=== PATIENT | female | born 1995 | race Caucasian/White ===

== ENCOUNTER 2019-11-22 11:42 | Emergency (ER) | payer MEDICAID, OTHER ==
[~2019-11-22] VITALS: Ht 160 cm; Wt 100.0 kg
[~2019-11-22 11:42] MED LIST: AMOX500T PO; IBUP-1223 PO; OXYC-302 PO; PREN1TAB56 PO
--- NOTE | 2019-11-22 12:35 | NUR ---
pt to ed from home c/o cough and sore throat x2 months. sts feels sob at night. c/o chills and sweats at night. sts productive cough only in the morning and will spit up clear mucus with bright red blood in it. denies travel/contact w/ others who traveled/hx TB. KATHIE Cage made aware. discussed w/ hemodialysis charge nurse. n95 mask precautions until provider assessment. lungs ctab. call cason in reach. as
[2019-11-22] MEDS ORDERED: DEXAMETHASONE 4 MG TABLET ONE (13:19)
[2019-11-22 13:25] LABS: BASOPHILS # (AUTO) 0.09 x10^3/uL (0-0.1); BASOPHILS % (AUTO) 1 % (0-1); EOSINOPHILS # (AUTO) 0.28 x10^3/uL (0-0.4); EOSINOPHILS % (AUTO) 3 % (1-7); LYMPHOCYTES # (AUTO) 2.03 x10^3/uL (1-3.4); LYMPHOCYTES % (AUTO) 22 % (22-44); MD NO; MEAN CORPUSCULAR HEMOGLOBIN 28.9 pg (27.0-34.8); MEAN CORPUSCULAR HGB CONC 33.2 g/dL (32.4-35.8); MEAN PLATELET VOLUME 8.3 fL (7.4-10.4); MONOCYTES # (AUTO) 0.49 x10^3/uL (0.2-0.8); MONOCYTES % (AUTO) 5 % (2-9); NEUTROPHILS # (AUTO) 6.37 x10^3/uL (1.8-6.8); NEUTROPHILS % (AUTO) 69 % (42-75); PLATELET COUNT 299 x10^3/uL (130-400); RED BLOOD COUNT 5.04 x10^6/uL (3.82-5.3)
[2019-11-22 13:30] LABS: ALBUMIN 3.5 g/dL (3.4-5.0); ANION GAP 6 mmol/L (5-15); CALCIUM 8.6 mg/dL (8.5-10.1); CHLORIDE 108 mmol/L (98-107)
[2019-11-22] MEDS ORDERED: DEXAMETHASONE 4 MG TABLET PO ONE (13:30)
[2019-11-22 13:32] VITALS: BP 104/69
[2019-11-22 13:46] LABS: RAPID INFLUENZA A Negative (Negative); RAPID INFLUENZA B Negative (Negative)
--- NOTE | 2019-11-22 13:47 | NUR ---
placed on monitor sr. ekg nsr. labs wnl. d dimer pending. cxr wnl. pt wearing mask. not on tb precs per provider assessment. as
== END 2019-11-22 14:40 | disposition home or self-care (01) ==
LOC: ED 14:34
DX: J00 Acute nasopharyngitis [common cold] (principal); B34.9 Viral infection, unspecified; J20.9 Acute bronchitis, unspecified
CPT/HCPCS: 36415; 71046; 80048; 82040; 85025; 85379; 87081; 87400; 87880; 93005; 99284